=== PATIENT | female | born 1950 | race Caucasian/White ===

== ENCOUNTER 2018-07-26 21:46 | Emergency (ER) | payer OTHER, MEDICAID ==
[~2018-07-26] VITALS: Ht 162.6 cm; Wt 65.8 kg
[2018-07-26 22:03] VITALS: Ht 162.6 cm; Wt 65.8 kg
[2018-07-27 00:37] VITALS: BP 109/57
== END 2018-07-27 00:37 | disposition home or self-care (01) ==
LOC: ED 21:46
DX: S80.01XA Contusion of right knee, initial encounter (principal); W19.XXXA Unspecified fall, initial encounter; Y93.89 Activity, other specified; Y92.89 Other specified places as the place of occurrence of the external cause; Y99.8 Other external cause status
CPT/HCPCS: J1885